=== PATIENT | female | born 2000 | race Caucasian/White ===

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

== ENCOUNTER → 2020-04-04 | Outpatient (CLI) | payer BC ==
--- NOTE | 2020-04-05 19:25 | MRI ---
EXAM DESCRIPTION: Cervical Spine: MRI. CLINICAL HISTORY: 19 years Female CERVICAL RADICULOPATHY. Pain in the neck and left shoulder "sharp". COMPARISON: None. TECHNIQUE: Multiplanar, high-field MRI, multiple sequences, non-contrast Cervical spine. FINDINGS: Minimal desiccation of the T1-T2 disc and minimal disc space loss with no bulging. Canal and neural foramina are patent. Facet joints are unremarkable. Normal signal in the cervical disks with no bulging. Disc spaces preserved. Canal and neural foramina are patent. Facet joints are unremarkable. Spinal alignment anatomic.. No cord compression or cord edema. Atlantoaxial joint is unremarkable. Base of the cerebellar tonsils is above the foramen magnum. Paravertebral soft tissues bilateral lymph nodes in the paracervical space and in bilateral carotid spaces. 11.8 x 6.8 mm lymph node in the right carotid space. 9.5 x 7 mm lymph node left carotid space. No soft tissue edema.. Vertebral bodies are not compressed at any level. Otherwise normal marrow signal in the remaining vertebral bodies and the posterior elements. IMPRESSION: 1. MRI scan of the cervical spine showing no abnormal cervical disks. No canal or neural foraminal stenosis. Desiccation and mild disc space loss T1-2 disc. 2. Borderline bilateral cervical adenopathy as described. Correlate for palpable lymph nodes tenderness. History of recent infectious or inflammatory process. Electronically signed by: Angel Patel MD 04/05/2020 7:23 PM [facility]
== END ==
LOC: MRI 08:58
PROVIDERS: ATTEND Family Medicine
DX: M50.10 Cervical disc disorder with radiculopathy, unspecified cervical region (principal); R59.9 Enlarged lymph nodes, unspecified; M51.34 Other intervertebral disc degeneration, thoracic region